=== PATIENT | female | born 1995 | race Asian ===

== ENCOUNTER 2022-05-24 07:27 | Emergency (ER) | payer OTHER ==
[~2022-05-24] VITALS: Ht 165.1 cm; Wt 63.0 kg
[2022-05-24 07:37] VITALS: BP 111/70
[2022-05-25 08:56] LABS: Hepatitis B Surface Antibody Negative (Negative)
== END 2022-05-24 09:16 | disposition left against medical advice (07) ==
LOC: ER 07:27
DX: T14.8XXA Other injury of unspecified body region, initial encounter (principal); Z53.21 Procedure and treatment not carried out due to patient leaving prior to being seen by health care provider; W46.1XXA Contact with contaminated hypodermic needle, initial encounter; Y93.89 Activity, other specified; Y92.89 Other specified places as the place of occurrence of the external cause; Y99.8 Other external cause status
CPT/HCPCS: 36415; 86703; 86706; 86803; 87340